=== PATIENT | male | born 1970 | race Caucasian/White ===

== ENCOUNTER 2022-09-27 06:24 | Day surgery (SDC) | payer BC, OTHER ==
[2022-09-27] MEDS ORDERED: Lactated Ringers 1,000 ML IV SCH (07:15)
[2022-09-27] MEDS ORDERED: Midazolam 1 MG/ML 2 ML SDV ONE (07:18)
[2022-09-27] MEDS ORDERED: Propofol 200 MG/20 ML SDV ONE ×2 (07:18→08:00)
[2022-09-27] MEDS ORDERED: fentaNYL 50 MCG/ML SDV ONE (07:18)
== END 2022-09-27 09:35 | disposition home or self-care (01) ==
LOC: JP.SDS 06:24
PROVIDERS: ATTEND Family Medicine
DX: D12.3 Benign neoplasm of transverse colon (principal); K57.30 Diverticulosis of large intestine without perforation or abscess without bleeding; K64.8 Other hemorrhoids; K62.1 Rectal polyp; I10 Essential (primary) hypertension; Z98.890 Other specified postprocedural states; Z79.899 Other long term (current) drug therapy; Z87.891 Personal history of nicotine dependence
CPT/HCPCS: 45380; J2250; J2704; J3010; J7120; 88305

== ENCOUNTER 2023-05-11 10:59 | Emergency (ER) | payer OTHER ==
[2023-05-11] MEDS ORDERED: Aspirin 81 MG Tab.Chew PO ONE (12:01)
[2023-05-11] MEDS ORDERED: Sodium Chloride 0.9% 10 ML Syringe FLUSH PRN (12:01)
[2023-05-11] MEDS ORDERED: Sodium Chloride 0.9% 1,000 ML IV SCH (12:15)
[2023-05-11 12:55] LABS: BASOPHILS ABSOLUTE AUTO 0.05 K/uL (0.00-0.10); BASOPHILS PERCENT AUTO 0.9 % (0.1-1.3); EOSINOPHILS ABSOLUTE AUTO 0.26 K/uL (0.00-0.40); EOSINOPHILS PERCENT AUTO 4.5 % (0.0-5.4); HEMATOCRIT 42.3 % (38.4-49.7); HEMOGLOBIN 14.5 g/dL (12.9-16.9); IMMATURE GRAN PERCENT AUTO 0.3 % (0.0-0.7); LYMPHOCYTES ABSOLUTE AUTO 1.36 K/uL (0.8-3.3); LYMPHOCYTES PERCENT AUTO 23.5 % (11.4-47.7); MEAN CORPUSCULAR HEMOGLOBIN 30.7 pg (31.6-35.5); MEAN CORPUSCULAR HGB CONC 34.3 g/dL (31.6-35.5); MEAN CORPUSCULAR VOLUME 89.6 fL (81.4-99.0); MONOCYTES PERCENT AUTO 10.4 % (3.3-12.6); NEUTROPHILS ABSOLUTE AUTO 3.49 K/uL (1.0-7.6); NEUTROPHILS PERCENT AUTO 60.4 % (40.0-78.1); PLATELET COUNT,PLT 189 K/uL (130-375); RED BLOOD CELL COUNT 4.72 M/uL (4.14-5.76); WHITE BLOOD CELL COUNT,WBC 5.8 K/uL (3.2-11.0)
[2023-05-11 12:57] LABS: IMMATURE GRAN ABSOLUTE AUTO 0.02 K/uL (0.00-0.23)
[2023-05-11 13:17] LABS: A/G RATIO 1.1 (1.2-2.2); ALANINE AMINOTRANSFERASE,ALT 49 U/L (12-78); ALBUMIN 3.5 g/dL (3.4-5.0); ALKALINE PHOSPHATASE 47 U/L (46-116); ANION GAP 9.2 mmol/L (5.0-14.0); ASPARTATE AMNIOTRANSFERASE,AST 25 U/L (15-37); BILIRUBIN TOTAL 0.8 mg/dL (0.2-1.0); BLOOD UREA NITROGEN,BUN 15 mg/dL (7-18); CALCIUM 8.3 mg/dL (8.5-10.1); CARBON DIOXIDE,CO2 27 mmol/L (21-32); CHLORIDE,CL 104 mmol/L (100-108); CREATININE 0.7 mg/dL (0.8-1.3); EST CRCL DRUG DOSING (CG) 141.89 mL/min; ESTIMATED GFR 110 mL/min (>60); GLUCOSE RANDOM 100 mg/dL (74-106); POTASSIUM,K 4.1 mmol/L (3.6-5.2); PROTEIN TOTAL,TP 6.8 g/dL (6.4-8.2); SODIUM,NA 140 mmol/L (140-148); TROPONIN I HIGH SENSITIVITY 6.4 pg/mL (<=60.3)
== END 2023-05-11 14:31 | disposition home or self-care (01) ==
LOC: JP.ED 10:59
DX: R07.89 Other chest pain (principal); I10 Essential (primary) hypertension; Z79.899 Other long term (current) drug therapy
CPT/HCPCS: 36415; 71046; 71046-26; 80053; 83605; 84484; 85025; 93005; 93010; 96360; 99283; 99285-25; A9270-GY; J3490; J7030